=== PATIENT | female | born 1995 | race Caucasian/White ===

== ENCOUNTER 2017-01-10 13:00 | Inpatient (IN) | payer OTHER ==
--- NOTE | ~2017-01-10 | PN ---
Unit #: [id number] #: [id number] Patient: BRANDON MCDONOUGH [id number] [facility] [address] [place] [address] [id number] MR#: [id number] NAME: BRANDON MCDONOUGH ROOM: [facility] Age: 21 Sex: F Admission Date: 01/10/2017 : 1995 Attending Physician: Patricia Byrne M.D. Admitting Physician: Patricia Byrne M.D. Primary Care Physician: Primary Care Physician Ayla SHUKLA PROGRESS NOTES DATE 01/13/2017 DISCUSSION Ms. Mcdonough is a 21-year-old white female who was seen today and chart was reviewed and case was discussed with the staff. She has been doing fairly well and has been showing improvement in her depression and anxiety and has been cooperative with treatment recommendations as she has been taking medications and tolerating them fairly well with no reported side effects. MENTAL STATUS EXAMINATION Young white female who was casually dressed with fair personal hygiene, appears to be in no acute distress or discomfort. She was awake and alert on interaction with intact orientation. Her mood was anxious with congruent affect. She denies any suicidal or homicidal ideations. Her insight and judgement remains slightly impaired. TREATMENT PLAN 1. We will continue her on her current medications and treatment protocol. We will monitor her response to medication and make further adjustments as needed. 2. We will continue to follow up. Dictated by... Lai Malagon/sandra TD: 01/13/2017 22:18 JOB #: [id number] Unit #: [id number] #: [id number] Patient: BRANDON MCDONOUGH PROGRESS NOTES Page 1 of 1 X Patricia Byrne MD PROGRESS NOTE
--- NOTE | ~2017-01-10 | DS ---
Unit #: [id number] #: [id number] [facility] [id number] [facility] [address] [place] [address] [id number] MR#: [id number] NAME: BRANDON MICHAUD ROOM: [facility] Age: 21 Sex: F Admission Date: 01/10/2017 : 1995 Discharge Date: 01/14/2017 Attending Physician: Patricia Byrne M.D. Primary Care Physician: Primary Care Physician No DISCHARGE SUMMARY IDENTIFYING DATA Ms. Hammer is a 21-year-old, single, white female who is a resident of [place], [place] and was transferred to us from [facility]. DISCHARGE DIAGNOSES Psychiatric: Bipolar disorder, most recent episode depressed, recurrent, moderate, without psychotic features. Medical: None. Stressors: Moderate psychosocial stressors. HISTORY OF PRESENT ILLNESS Please see initial psychiatric evaluation for details. PAST PSYCHIATRIC HISTORY Please see initial psychiatric evaluation for details. PAST MEDICAL HISTORY Please see initial psychiatric evaluation for details. HOSPITAL COURSE The patient was admitted to the adult psychiatric unit at [facility] young [place] and was oriented to the hospital environment. Routine p.r.n. medications were initiated, and she was started on a combination of Geodon and Zoloft, and was closely monitored. She was taking the medications regularly and was tolerating them fairly well and was seen to be polite and pleasant and cooperative with treatment recommendations and was able to show a decent therapeutic response with improvement in her depressive symptoms and was denying any suicidal ideations, intent, or plan. She was going to therapy groups and was seen to be showing improvement in her depressive symptoms as evidence by her increased socialization and interaction with peers, and was not expressing any suicidal thoughts, intent, or plan and was not seen to be danger to self or anyone else and as such, it was decided that she will be discharged home and will continue treatment on an outpatient basis. DISCHARGE MEDICATIONS Zoloft 100 mg in the morning for depression and Geodon 60 mg in the evening for bipolar. DISCHARGE CONDITION Stable. PROGNOSIS Fair. Unit #: [id number] #: [id number] Patient: BRANDON MICHAUD Dictated by... Lai Malagon/preston TD: 01/16/2017 17:48 JOB #: [id number] DISCHARGE SUMMARY Page 1 of 1 X Patricia Byrne MD DISCHARGE SUMMARY
--- NOTE | ~2017-01-10 | PN ---
Unit #: [id number] #: [id number] Patient: BRANDON MCDONOUGH [id number] [facility] [address] [place] [address] [id number] MR#: [id number] NAME: BRANDON MCDONOUGH ROOM: P255 Age: 21 Sex: F Admission Date: 01/10/2017 : 1995 Attending Physician: Patricia Byrne M.D. Admitting Physician: Patricia Byrne M.D. Primary Care Physician: Primary Care Physician Ayla SHUKLA PROGRESS NOTES DATE 01/12/2017 DISCUSSION Ms. Mcdonough is a 21-year-old white female who was seen today and chart was reviewed and case was discussed with the staff. She has been anxious, withdrawn and rather seclusive to herself. Meanwhile, she has been cooperative with treatment recommendations and has been taking medications and tolerating them fairly well. MENTAL STATUS EXAMINATION Young white female who was casually dressed with fair personal hygiene and appears to be in no acute distress or discomfort. She was awake and alert with intact orientation. Her mood was anxious and depressed with congruent affect. Her speech is slow and goal-directed. She denies any suicidal or homicidal ideation. Her insight and judgement remains slightly impaired. TREATMENT PLAN 1. Will continue on current medications and treatment protocol. Will monitor her response and make further adjustments as needed. 2. Will continue to follow up. Dictated by... Lai Malagon/beatrice TD: 01/12/2017 20:53 JOB #: [id number] Unit #: [id number] #: [id number] Patient: BRANDON MCDONOUGH PROGRESS NOTES Page 1 of 1 X Patricia Byrne MD PROGRESS NOTE
--- NOTE | ~2017-01-10 | PA ---
Unit #: [id number] #: [id number] Patient: BRANDON MICHAUD [id number] [facility] [address] [place] [address] [id number] MR#: [id number] NAME: BRANDON MICHAUD ROOM: P255 Age: 21 Sex: F Admission Date: 01/10/2017 : 1995 Date of Assessment: 01/11/2017 Attending Physician: Patricia Byrne M.D. Admitting Physician: Patricia Byrne M.D. Primary Care Physician: Primary Care Physician No PSYCHIATRIC ASSESSMENT DATE OF SERVICE 01/11/2017. IDENTIFYING DATA Ms. Michaud is a 21-year-old single white female, who is a resident of [place], [place], and was transferred to us from [facility]. CHIEF COMPLAINT "I've been having suicidal thoughts". HISTORY OF PRESENT ILLNESS Ms. Michaud is a 21-year-old white female with history of bipolar disorder, who was brought to the hospital after she stated that she has been off her medication for almost a year and has been decompensating and that she has been having thoughts of suicide and "I was on my way home from work and I pulled in front of [address] on purpose." The patient stated that she does not know why she wants to , "I would have made it to look like an accident." She does report increasing depression, anxiety, irritability, restlessness, feelings of hopelessness and helplessness, and suicidal ideations and as such, recommendation for inpatient level of care for safety and stabilization was made and the patient was transferred to us. SUBSTANCE ABUSE HISTORY The patient denies any alcohol or drug abuse. PAST PSYCHIATRIC HISTORY The patient has a history of psychiatric treatment in the past and reports that she has been diagnosed and treated for bipolar disorder, but has been off her medication for almost a year and has been decompensating. PAST MEDICAL HISTORY Asthma. ALLERGIES No known medication allergies. PERSONAL AND SOCIAL HISTORY A 21-year-old white female, who reports that she is single, unemployed, and lives at home with her grandparents, and has fairly decent social support system. MENTAL STATUS EXAMINATION Unit #: [id number] #: [id number] Patient: BRANDON MICHAUD Young white female, who was casually dressed with fair personal hygiene, appears to be in no acute distress or discomfort. She was awake and alert on interaction with intact orientation to time, place, and person. Her mood was anxious and depressed with a congruent affect. Her speech was slow and goal directed. She reports having suicidal ideations, but denies any homicidal ideations, and also denies any auditory or visual hallucinations. Her insight and judgment remain significantly impaired. DIAGNOSTIC IMPRESSION Psychiatric: Bipolar disorder, most recent episode depressed, recurrent, moderate, without psychotic features. Medical: None. Stressors: Moderate psychosocial stressors. TREATMENT PLAN 1. The patient has presented with history of mood disorder, and has been decompensating and will need inpatient hospitalization for safety and stabilization. We will start her back on her home medications. We will adjust the medications and monitor response. 2. Supportive therapy was provided to the patient. 3. Safe, structured, and nourishing environment will be provided. ESTIMATED LENGTH OF STAY 5 to 7 days. ABILITY TO HELP SELF Limited. WILLINGNESS TO HELP SELF The patient appears to be willing to help self. STRENGTHS 1. Communicative. 2. Cooperative. PROBLEMS 1. Chronic dysphoric symptoms. 2. Poor social support system. 3. Chronic chemical dependency. DISCHARGE CRITERIA This will be contingent upon the patient's ability to show resolution of her depression and anxiety and her ability to stay safe to herself, particularly after discharge from the hospital. Dictated by... Lai Malagon/preston TD: 01/11/2017 13:25 JOB #: [id number] Unit #: [id number] #: [id number] Patient: BRANDON MICHAUD PSYCHIATRIC ASSESSMENT Page 1 of 1 X Patricia Byrne MD X PSYCHIATRIC ASSESSMENT
--- NOTE | ~2017-01-10 | CO ---
Unit #: [id number] #: [id number] Patient: BRANDON MICHAUD [id number] [facility] [address] [place] [address] [id number] MR#: [id number] NAME: BRANDON MICHAUD ROOM: [facility] Age: 21 Sex: F Admission Date: 01/10/2017 : 1995 Attending Physician: Patricia Byrne M.D. Primary Care Physician: Primary Care Physician No Consultation Date: 01/12/2017 CONSULTATION REPORT SUBJECTIVE Brandon is a 21-year-old who was requesting her control pills be administered during this admission. I pointed out to her that we were not able to order those in this facility, but if someone could bring her medication in, we would be able to provide her with her pill each day. She was able to do this and she is getting her control on a daily basis. Dictated by... Martínez EliseAAren. for Lai Pineda/preston TD: 01/13/2017 00:11 JOB #: [id number] CONSULTATION REPORT Page 1 of 1 X Fidelia Camargo CONSULTATION REPORT
--- NOTE | ~2017-01-10 | HP ---
Unit #: [id number] #: [id number] Patient: BRANDON MICHAUD [id number] [facility] [address] [place] [address] [id number] I MR#: [id number] NAME: BRANDON MICHAUD ROOM: P255 Age: 21 Sex: F Admission Date: 01/10/2017 : 1995 Attending Physician: Patricia Byrne M.D. Admitting Physician: Patricia Byrne M.D. Primary Care Physician: Primary Care Physician No HISTORY AND PHYSICAL HISTORY OF PRESENT ILLNESS Brandon is a 21 year old, admitted to [address] [place] [address], with depression and verbalizing wanting to hurt herself. PAST MEDICAL HISTORY Asthma. PAST SURGICAL HISTORY 1. section x1. 2. Removal of a migrated IUD. ALLERGIES No known drug allergies. SOCIAL HISTORY She denies cigarettes, alcohol, or illicit drug use. FAMILY HISTORY Medically noncontributory. REVIEW OF SYSTEMS CONSTITUTIONAL: No fever or chills. HEENT: Denies any sore throat, ear pain or runny nose. CARDIOVASCULAR: Denies chest pain, irregular heart rhythm or palpitations. CHEST: Denies shortness of breath or cough. No hemoptysis. GASTROINTESTINAL: Denies nausea, vomiting, diarrhea or chronic constipation. ENDOCRINE: Denies history of increased thirst or urination. No recent significant weight loss or gain. GENITOURINARY: Denies dysuria, frequency, or hematuria. SKIN: Denies any rashes. HEMATOLOGIC: Denies history of increased bleeding or bruising. MUSCULOSKELETAL: Denies any hot, swollen joints. No generalized muscle pain. NEUROLOGIC: Denies problems with vision or speech. No frequent, severe headaches. No numbness, tingling or weakness in any extremities. Denies loss of bladder or bowel control. CURRENT MEDICATIONS 1. Geodon 60 mg daily 2. Zoloft 100 mg daily 3. Milk of magnesia p.r.n. 4. Maalox p.r.n. Unit #: [id number] #: [id number] Patient: BRANDON MICHAUD 5. Tylenol p.r.n. PHYSICAL EXAMINATION GENERAL: Alert, well-nourished, no apparent distress. VITAL SIGNS: Blood pressure 113/70, heart rate 80, respirations 16, and temperature 98.6. WEIGHT: 140 pounds. HEIGHT: 5 feet 4 inches. SKIN: Warm and dry without rash or lesion. HEENT: Normocephalic. TMs not viewed. Oral and nasal passages clear. Conjunctivae clear. PERRLA. EOMs intact. NECK: Supple without lymphadenopathy or thyromegaly. HEART: Regular rate and rhythm without murmur. LUNGS: Clear. ABDOMEN: Soft, nontender. : Not done. EXTREMITIES: No evidence of cyanosis, clubbing or edema. Moves all without focal deficit. NEUROLOGICAL: Grossly within normal limits. Cranial Nerves: II: Visual gonsalves are intact. III, IV AND : Extraocular movements are intact. Pupils are equal, round and reactive to light. V: Facial sensation is grossly normal. VII: Facial movements and expression are normal. VIII: Auditory acuity grossly intact. IX, X: Uvula is midline. Phonation is normal. XI: Patient shrugs shoulders and turns head normally. XII: Tongue protrudes in the midline. Sensory and Motor Function: Sensory and motor sensation is grossly normal. Motor: moves all extremities well. Coordination: Gait is normal. Deep Tendon Reflexes: Intact. IMPRESSION Psychiatric admission. RECOMMENDATIONS Psychiatric, per psychiatrist. MEDICAL I see no contraindications to participating in facility's activities. MEDICAL PROGNOSIS Good. MEDICAL CONDITION Stable. Dictated by... Fidelia Camargo PDanielaADaniela-Joe. for Lai Pineda/torrey TD: 01/11/2017 14:31 JOB #: [id number] Unit #: [id number] #: [id number] Patient: BRANDON MICHAUD HISTORY AND PHYSICAL Page 1 of 1 X Fidelia Camargo HISTORY AND PHYSICAL
[2017-01-11 13:32] LABS: BASOPHIL% 0.3 % (0-2.5); EOSINOPHIL# 0.5 X10e3 (0-0.7); EOSINOPHIL% 4.4 % (0.0-7.0); HEMATOCRIT 42.1 % (35.0-45.0); LYMPHOCYTE# 2.1 X10e3 (1.0-3.5); LYMPHOCYTE% 20.4 % (17.0-45.0); MEAN CELL VOLUME 91.2 FL (83-96); MEAN CORPUSCULAR HEMOGLOBIN 30.3 PG (28-34); MEAN CORPUSCULAR HGB CONC 33.3 g/dL (30-36); MEAN PLATELET VOLUME 7.9 FL (6.5-11.5); MONOCYTE# 0.5 X10e3 (0-1.0); NEUTROPHIL# 7.2 X10e3 (1.5-7.1); NEUTROPHIL% 69.9 % (40-75); PLATELET COUNT 253 X10e3 (140-420); RED BLOOD COUNT 4.62 X10e (3.90-5.30); RED CELL DISTRIBUTION WIDTH 12.8 % (11.0-15.5); WHITE BLOOD COUNT 10.3 X10e3 (4.0-10.5)
[2017-01-11 13:41] LABS: URINE APPEARANCE TURBID; URINE BILIRUBIN NEG (NEG); URINE BLOOD NEG (NEG); URINE COLOR YELLOW; URINE GLUCOSE NEG (NEG); URINE KETONE NEG (NEG); URINE LEUKOCYTE ESTERASE TRACE (NEG); URINE NITRATE NEG (NEG); URINE PH 7.5 (5-8); URINE PROTEIN NEG (NEG); URINE SPECIFIC GRAVITY 1.025 (1.003-1.035)
[2017-01-11 13:44] LABS: URINE BACTERIA AUWI 2+ (NEGATIVE); URINE SQUAMOUS EPITHELIAL CELL MOD /[HPF]
[2017-01-11 13:48] LABS: URBCS1 AUWI 0-2 /[HPF] (0-2)
[2017-01-11 13:54] LABS: DIFF IND NO
[2017-01-11 14:19] LABS: ALBUMIN SERUM 4.2 g/dL (3.5-5.0); BILIRUBIN,TOTAL 1.8 mg/dL (0.2-2.0); BUN/CREATININE RATIO 23.75; CALCIUM SERUM 9.6 mg/dL (8.4-10.2); CREATININE SERUM 0.8 mg/dL (0.6-1.4); GLOM FILT RATE Estimated 105.5 mL/min (>60); POTASSIUM 4.1 mmol/L (3.5-5.1); PROTEIN TOTAL SERUM 7.3 g/dL (6.0-8.3)
[2017-01-11 14:24] LABS: AMPHETAMINE NEG (NEG); BARBITURATES NEG (NEG); BENZODIAZEPINES NEG (NEG); COCAINE NEG (NEG); MARIJUANA NEG (NEG); OPIATES NEG (NEG); TRICYCLIC ANTIDEPRESSANTS NEG (NEG); U METHADONE NEG (NEG)
== END 2017-01-14 11:15 | disposition home or self-care (01) | DRG 885 ==
LOC: P2L 17:14
PROVIDERS: Psychiatry & Neurology Psychiatry
DX: F31.32 Bipolar disorder, current episode depressed, moderate (principal); J45.909 Unspecified asthma, uncomplicated
CPT/HCPCS: 80053; 80307; 81003; 84703; 85025